=== PATIENT | female | born 1980 | race Caucasian/White ===

== ENCOUNTER 2024-03-15 15:58 | Emergency (ER) | payer SELFPAY ==
[2024-03-15] VITALS (7 sets, daily range): BP systolic 120–131; BP diastolic 71–80; PULSE 71–78; RESP 17; TEMP 36.2; O2SAT 98–100; BMI 31.1
[2024-03-15 16:49] LABS: Add Manual Diff / Slide Review NO; Basophils Absolute Auto 200 /uL (0-100); Basophils Percent Auto 4.5 % (0-2); Eosinophils Absolute Auto 100 /uL (0-450); Hematocrit 37.5 % (36-46); Hemoglobin 12.5 g/dL (12.0-16.0); Lymphocytes Absolute Auto 1100 /uL (1100-4500); Lymphocytes Percent Auto 24.9 % (25-40); Mean Corpuscular HGB Conc 33.3 % (30-36); Mean Corpuscular Hemoglobin 28.6 PG (26-34); Monocytes Absolute Auto 400 /uL (0-900); Monocytes Percent Auto 8.1 % (3-14); Neutrophils Absolute Auto 2700 /uL (1500-7000); Neutrophils Percent Auto 60.5 % (50-75); Platelet Count 372 X10^3/uL (150-400); Red Blood Cell Count 4.36 X10^6/uL (4.0-5.2); Red Cell Distribution Width 14.2 % (11.6-14.8); White Blood Cell Count 4.5 X10^3/uL (4.5-11.0)
[2024-03-15 16:56] LABS: Alanine Aminotransferase 28 IU/L (<35); Albumin 4.2 g/dL (3.5-5.0); Albumin Globulin Ratio 1.3 (1.0-2.8); Alkaline Phosphatase 112 U/L (38-126); Aspartate Aminotransferase 36 IU/L (14-36); BUN Creatinine Ratio 9.1 (6-22); Bilirubin Total 0.6 mg/dL (0.2-1.3); Blood Urea Nitrogen 10 mg/dL (7-17); Calcium 8.7 mg/dL (8.4-10.2); Carbon Dioxide 22 mmol/L (22-32); Chloride 105 mmol/L (98-107); Estimated Glomerular Filt Rate > 60 mL/min (>60); Globulin 3.2 g/dL (1.7-4.1); Glucose 86 mg/dL (70-100); HEMOLYSIS < 15 (0-50); Lipase 121 U/L (23-300); Potassium 3.6 mmol/L (3.4-5.1); Sodium 137 mmol/L (137-145); Total Protein 7.4 g/dL (6.3-8.2)
[2024-03-15] MEDS: ONDANSETRON 4 MG/2 ML INJ IV (17:01)
--- NOTE | 2024-03-15 18:05 | DI.CT.S_ITS ---
PROCEDURE: CT ABDOMEN PELVIS W CON INDICATIONS: eval for obstruction TECHNIQUE: After the administration of intravenous contrast, axial sections acquired from the lung bases to the pubic symphysis. Coronal and sagittal reformats were performed. For radiation dose reduction, the following was used: automated exposure control, adjustment of mA and/or kV according to patient size. COMPARISON: None. FINDINGS: Image quality: Diagnostic. Lower Chest: No significant findings. ABDOMEN: Liver: No solid mass. Gallbladder: No radiopaque gallstones or wall thickening. Biliary ducts: No biliary dilation. Pancreas: No ductal dilation. Spleen: Size is within normal limits. Adrenal Glands: No adrenal nodules. Kidneys and Ureters: No hydronephrosis. No solid mass. No complex renal cystic lesion which requires follow up. Stomach and Bowel: Normal colonic caliber, without significant wall thickening. Stool burden is moderate to large. There is fecalization of the terminal ileum consistent with increased bowel transit times. Peritoneum: No abnormal intraperitoneal fluid. No free air. Ventral Wall: No significant ventral hernia. Abdominal Nodes: No retroperitoneal or mesenteric adenopathy by size criteria. Vessels: Aorta and inferior vena cava are normal in size. PELVIS: Pelvic Organs: Unremarkable. Bladder: No bladder wall thickening, accounting for underdistention. Pelvic Nodes: No enlarged lymph nodes. Miscellaneous: No inguinal hernias are seen. Bones: No aggressive osseous abnormality. IMPRESSION: Moderate to large stool burden with findings of chronic constipation. No obstruction. Dictated by: Sanjuanita Cardona M.D. on 03/15/2024 at 17:33 Approved by: Sanjuanita Cardona M.D. on 03/15/2024 at 17:36
[2024-03-15] MEDS: SODIUM CHLORIDE 0.9% 500 ML 1000 ML IV (18:22)
--- NOTE | 2024-03-15 18:54 | ED_ITS ---
HPI - General Adult General Chief complaint: Abdominal Pain Stated complaint: abd pain t-3 Time Seen by Provider: 03/15/24 18:01 Source: patient Mode of arrival: Ambulatory History of Present Illness HPI narrative: Patient is a 43-year-old female. No prior abdominal surgeries. Has had colonoscopies in the past. Has had issues with chronic constipation. States very often she just takes magnesium and is able to have daily bowel movements. She was here because she was not had a bowel movement in the past couple days. Has had some nausea but no vomiting. She also reports that she feels like her abdomen is somewhat distended and she has a been passing flatus. No urinary symptoms. No vaginal bleeding. No fevers. Related Data Previous Rx's Medication Instructions Recorded hyoscyamine sulfate 0.375 mg 0.375 mg PO Q12H #7 tabs 03/15/24 tablet,extended release,12 hr promethazine 25 mg tablet 25 mg PO Q4-6H PRN nausea and 03/15/24 vomiting #10 tabs Allergies Allergy/AdvReac Type Severity Reaction Status Date / Time No Known Drug Allergies Allergy Verified 03/15/24 16:12 Review of Systems Review of Systems ROS Unobtainable: All systems reviewed & are unremarkable except as noted in HPI and below Patient History Social History Smoking Status: Never smoker Smoking Status: Never smoker Exam Initial Vital Signs Initial Vital Signs: Vital Signs Temperature 97.2 F L 03/15/24 16:12 Pulse Rate 71 03/15/24 16:12 Respiratory Rate 17 03/15/24 16:12 Blood Pressure 126/80 03/15/24 16:12 Pulse Oximetry 100 03/15/24 16:12 Oxygen Delivery Method Room Air 03/15/24 16:12 Const General: cooperative and No ill appearing [facility] Head: normal to inspection Resp Effort & Inspection: normal respiratory effort Cardio Rate: regular rate GI Inspection: normal to inspection and non-distended Palpation: soft, No firm, No guarding and tender Skin General: no rashes or lesions noted Neuro General: patient alert and patient awake Course Orders Ordered: ED Orders 03/15/24 16:32 Complete Blood Count AUTO DIFF Stat Comprehensive Metabolic Panel Stat Lipase Stat 03/15/24 18:05 CT abdomen pelvis w con Stat Discontinued Medications Sodium Chloride (Normal Saline 0.9%) 500 mls @ 1,000 mls/hr IV BOLUS ONE Stop: 03/15/24 18:34 Last Infusion: 03/15/24 19:08 Dose: Infused Documented By: Admin: 03/15/24 18:22 Dose: 1,000 mls/hr Documented By: MARISELA Ondansetron HCl (Ondansetron 4 Mg/2 Ml Inj) 4 mg IV NOW PRN PRN Reason: Nausea And Vomiting Last Admin: 03/15/24 17:01 Dose: 4 mg Documented By: PHIL Ondansetron HCl (Ondansetron 4 Mg Odt) 4 mg PO NOW PRN PRN Reason: Nausea And Vomiting Vital Signs Vital signs: Vital Signs - 8 hr 03/15/24 16:12 03/15/24 16:57 03/15/24 17:00 Temperature 97.2 F L Pulse Rate 71 74 Respiratory Rate 17 Blood Pressure 126/80 125/80 Pulse Oximetry 100 100 Oxygen Delivery Method Room Air 03/15/24 17:00 03/15/24 17:30 03/15/24 17:30 Temperature Pulse Rate 76 75 Respiratory Rate Blood Pressure 120/71 Pulse Oximetry 98 99 Oxygen Delivery Method 03/15/24 18:00 03/15/24 18:00 03/15/24 18:30 Temperature Pulse Rate 76 78 Respiratory Rate Blood Pressure 131/80 Pulse Oximetry 100 100 Oxygen Delivery Method 03/15/24 19:00 Temperature Pulse Rate 76 Respiratory Rate Blood Pressure Pulse Oximetry 99 Oxygen Delivery Method Medical Decision Making Lab Data Lab results reviewed: Yes I reviewed the patient's lab results. 03/15/24 16:32 03/15/24 16:32 Labs: Lab Results 03/15/24 Range/Units 16:32 WBC 4.5 (4.5-11.0) X10^3/uL RBC 4.36 (4.0-5.2) X10^6/uL Hgb 12.5 (12.0-16.0) g/dL Hct 37.5 (36-46) % MCV 86.0 (80-100) fL MCH 28.6 (26-34) PG MCHC 33.3 (30-36) % RDW 14.2 (11.6-14.8) % Plt Count 372 (150-400) X10^3/uL Neut % (Auto) 60.5 (50-75) % Lymph % (Auto) 24.9 L (25-40) % [place] % (Auto) 8.1 (3-14) % Eos % (Auto) 2.0 (2-4) % Baso % (Auto) 4.5 H (0-2) % Neut # (Auto) 2700 (3138-0672) /uL Lymph # (Auto) 1100 (0982-0238) /uL [place] # (Auto) 400 (0-900) /uL Eos # (Auto) 100 (0-450) /uL Baso # (Auto) 200 H (0-100) /uL Sodium 137 (137-145) mmol/L Potassium 3.6 (3.4-5.1) mmol/L Chloride 105 (98-107) mmol/L Carbon Dioxide 22 (22-32) mmol/L BUN 10 (7-17) mg/dL Creatinine 1.10 H (0.52-1.04) mg/dL Estimated GFR > 60 (>60) mL/min BUN/Creatinine Ratio 9.1 (6-22) Glucose 86 (70-100) mg/dL Calcium 8.7 (8.4-10.2) mg/dL Total Bilirubin 0.6 (0.2-1.3) mg/dL AST 36 (14-36) IU/L ALT 28 (<35) IU/L Alkaline Phosphatase 112 (38-126) U/L Total Protein 7.4 (6.3-8.2) g/dL Albumin 4.2 (3.5-5.0) g/dL Globulin 3.2 (1.7-4.1) g/dL Albumin/Globulin Ratio 1.3 (1.0-2.8) Lipase 121 (23-300) U/L Point of Care Testing Test Results Negative Urine Dip Bedside Urine Glucose Negative Bedside Urine Bilirubin - Negative Bedside Urine Ketone - Negative Urine Specific [place] 1.000 Bedside Urine Occult Blood - Negative Bedside Urine pH 6.0 Bedside Urine Protein - Negative Bedside Urine Urobilinogen - Negative Bedside Urine Nitrite - Negative Bedside Urine Leukocytes - Negative Esterase Point of care testing: Point of Care Testing Test Results Negative Urine Dip Bedside Urine Glucose Negative Bedside Urine Bilirubin - Negative Bedside Urine Ketone - Negative Urine Specific [place] 1.000 Bedside Urine Occult Blood - Negative Bedside Urine pH 6.0 Bedside Urine Protein - Negative Bedside Urine Urobilinogen - Negative Bedside Urine Nitrite - Negative Bedside Urine Leukocytes - Negative Esterase Imaging Data CT scan - abdomen/pelvis: Radiologist's Impression: PROCEDURE: CT ABDOMEN PELVIS W CON INDICATIONS: eval for obstruction TECHNIQUE: After the administration of intravenous contrast, axial sections acquired from the lung bases to the pubic symphysis. Coronal and sagittal reformats were performed. For radiation dose reduction, the following was used: automated exposure control, adjustment of mA and/or kV according to patient size. COMPARISON: None. FINDINGS: Image quality: Diagnostic. Lower Chest: No significant findings. ABDOMEN: Liver: No solid mass. Gallbladder: No radiopaque gallstones or wall thickening. Biliary ducts: No biliary dilation. Pancreas: No ductal dilation. Spleen: Size is within normal limits. Adrenal Glands: No adrenal nodules. Kidneys and Ureters: No hydronephrosis. No solid mass. No complex renal cystic lesion which requires follow up. Stomach and Bowel: Normal colonic caliber, without significant wall thickening. Stool burden is moderate to large. There is fecalization of the terminal ileum consistent with increased bowel transit times. Peritoneum: No abnormal intraperitoneal fluid. No free air. Ventral Wall: No significant ventral hernia. Abdominal Nodes: No retroperitoneal or mesenteric adenopathy by size criteria. Vessels: Aorta and inferior vena cava are normal in size. PELVIS: Pelvic Organs: Unremarkable. Bladder: No bladder wall thickening, accounting for underdistention. Pelvic Nodes: No enlarged lymph nodes. Miscellaneous: No inguinal hernias are seen. Bones: No aggressive osseous abnormality. IMPRESSION: Moderate to large stool burden with findings of chronic constipation. No obstruction. MDM Narrative Medical decision making narrative: Labs are unremarkable. CT scan shows large stool burden but no other acute pathology. We did discuss this with her. We discussed the possibility that this is constipation causing her discomfort. We discussed use of laxatives. No indication for surgical consultation. No indication for admission to hospital. She was given return precautions and instructions. She expressed understanding and agreement with the plan. Discharge Plan Departure Patient Disposition: Home Clinical Impression: Abdominal pain, Constipation Instructions: DI for Abdominal Pain-Adult, DI for Constipation Activity Restrictions/Additional Instructions: Do recommend that you start taking a laxative on a daily basis like we discussed. Contact your primary doctor for a follow-up. Return to the emergency department for new or worsening symptoms. Prescriptions: New promethazine 25 mg tablet 25 mg PO Q4-6H PRN (Reason: nausea and vomiting) Qty: 10 0RF hyoscyamine sulfate 0.375 mg tablet extended release 12 hr 0.375 mg PO Q12H Qty: 7 0RF Stand Alone Forms: Patient Portal/API/Survey
== END 2024-03-15 19:10 | disposition home or self-care (01) ==
PROVIDERS: Emergency Medicine; Emergency Provider Emergency Medicine
DX: K59.00 Constipation, unspecified (principal); R10.9 Unspecified abdominal pain
CPT/HCPCS: 36415; 74177; 80053; 81003; 81025; 83690; 85025; 96361; 96374; 99284; J2405; Q9967